=== PATIENT | female | born 1930 | race Caucasian/White ===

== ENCOUNTER 2017-06-27 14:19 | Inpatient (IN) | payer OTHER ==
--- NOTE | 2017-06-27 14:44 | CPEKG ---
Heart Rate: 126 RR Interval: 476 QRSD Interval: 76 QT Interval: 324 QTC Interval: 470 QRS [place]: 18 T Wave [place]: 38 EKG Severity - ABNORMAL ECG - EKG Impression: ATRIAL FLUTTER WITH 2:1 AV BLOCK Electronically Signed By: Mignon Brown 27-Jun-2017 23:05:49
--- NOTE | 2017-06-27 15:05 | EDPHY ---
H & P Time Seen by Provider: 06/27/17 14:39 HPI/ROS: CHIEF COMPLAINT: Irregular heartbeat HISTORY OF PRESENT ILLNESS: 86 year old female with history of paroxysmal atrial fibrillation presenting with fast, irregular heartbeat. This morning, she awoke with an irregular pulse and felt unwell, which she describes as having "bridges fuzzies" in her vision and diaphoresis. She laid down and took an extra metoprolol, but her symptoms have persisted. She is currently experiencing a rapid irregular heart beat, associated with rapid breathing. No allev/aggrev factors. No recent change in medications. On Metoprolol, Sotalol and Eliquis. She denies chest pressure or any pain or swelling in her legs. REVIEW OF SYSTEMS: A 10 point review of systems was performed and is negative with the exception of the elements mentioned in the history of present illness. Past Medical/Surgical History: Paroxysmal Afib COPD Social History: Nonsmoker. No alcohol use. Family at bedside. Visiting from [place]. 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 Smoking Status: Former smoker Physical Exam: General Appearance: Alert, pleasant Eyes: Pupils equal and round, no conjunctival pallor or injection ENT, Mouth: Mucous membranes moist Neck: Normal inspection Respiratory: Lungs are clear to auscultation Cardiovascular: Irregularly irregular tachycardia Gastrointestinal: Abdomen is soft and non-tender Neurological: A&O, nonfocal exam Skin: Warm and dry, no rash Extremities: Nontender, no pedal edema Psychiatric: Mood and affect normal Constitutional: Initial Vital Signs Temperature (C) 36.4 C 06/27/17 14:22 Heart Rate 114 H 06/27/17 14:22 Respiratory Rate 18 06/27/17 14:22 Blood Pressure 148/126 H 06/27/17 14:22 O2 Sat (%) 95 06/27/17 14:22 O2 Delivery Mode Room Air Allergies/Adverse Reactions: No Known Allergies Allergy (Unverified 06/27/17 14:21) Home Medications: Medication Instructions Recorded Apixaban [Eliquis] 5 mg PO BID 06/27/17 Herbals/Supplements -Info Only 1 ea PO DAILY 06/27/17 Multivitamins [Multivitamin (*)] 1 each PO DAILY 06/27/17 Rosuvastatin Calcium [Crestor 5mg] 5 mg PO HS 06/27/17 Sotalol HCl [Betapace 80 MG (*)] 80 mg PO BID 06/27/17 Diltiazem [Cardizem Ir Q6hr] 30 mg PO Q6H PRN #30 tab 06/28/17 Medical Decision Making - Diagnostics EKG Interpretation: EKG interpreted by me reveals Afib/flutter, vent rate 126. Impression: abnormal EKG Imaging: I viewed and interpreted images myself ED Course/Re-evaluation: 86 year old female presents in Afib with RVR. Tolerating the rapid HR well, with a normal BP. Plan to administer 10mg IV Diltiazem for rate control. Plan for chest x-ray, labs including CBC, BMP, Troponin. Labs unremarkable. Chest x-ray negative for acute processes. HR now 100's, Continues to be in Afib, BP stable. Diliazem drip ordered. 15:24 Consulted with hospitalist service. Dr. Lal accepts admission for atrial fibrillation with rapid ventricular rate. The pt remained stable throughout her ED stay. Consideration for cardioversion in am if remains in Afib. Critical care time of 35 minutes by me exclusive of unbundled procedures. Organ at risk: heart. Differential Diagnosis: includes though not limited to PE, pulm edema, ACS, hypotension, ventricular dysrhythmia. - Data Points Laboratory Results: Laboratory Results 06/27/17 15:02 06/27/17 15:02 Medications Given: Discontinued Medications Apixaban (Eliquis) 5 mg PO BID [facility] Stop: 12/24/17 20:59 Last Admin: 06/28/17 07:35 Dose: 5 mg Diltiazem HCl (Cardizem 25 Mg/5 Ml Vial) 10 mg IVP EDNOW ONE Stop: 06/27/17 15:13 Last Admin: 06/27/17 15:37 Dose: 10 mg Sodium Chloride (Ns) 500 mls @ 1,500 mls/hr IV ONCE ONE Stop: 06/27/17 15:48 Last Admin: 06/27/17 15:56 Dose: 500 mls Diltiazem HCl 125 mg/ Dextrose 125 mls @ 0 mls/hr IV EDNOW ONE; As Directed PRN Reason: Protocol Stop: 06/27/17 15:59 Last Admin: 06/27/17 16:19 Dose: Not Given Multivitamins (Tab-A-Makenzie) 1 each PO DAILY [facility] Stop: 12/25/17 08:59 Last Admin: 06/28/17 07:35 Dose: 1 each Rosuvastatin Calcium (Crestor) 5 mg PO HS [facility] Stop: 12/24/17 20:59 Last Admin: 06/27/17 20:34 Dose: 5 mg Sotalol HCl (Betapace) 80 mg PO BID [facility] Stop: 12/24/17 20:59 Last Admin: 06/28/17 07:36 Dose: 80 mg Departure - Departure Disposition: [facility] Inpatient Acute Clinical Impression: Atrial fibrillation with RVR Condition: Fair Report Scribed for: Zuly Greco Report Scribed by: Pratima Boykin Date of Report: 06/27/17 Time of Report: 15:10 Physician Review and Approval Statement: 06/27/17 15:10 Portions of this note were transcribed by a medical transcription radiology. I personally performed a history, physical exam, medical decision making, and confirmed accuracy of information the transcribed note.
[2017-06-27 15:12] LABS: % IMMATURE GRANULYOCYTES 0.3 % (0.0-1.1); ABSOLUTE IMMATURE GRANULOCYTES 0.02 10^3/uL (0.00-0.10); ADD DIFF? NO; ADD MORPH? NO; ADD SCAN? NO; ATYPICAL LYMPHOCYTE FLAG 0 (0-99); FRAGMENT RBC FLAG 0 (0-99); HEMATOCRIT 43.3 % (38.0-47.0); HEMOGLOBIN 14.7 g/dL (12.6-16.3); LEFT SHIFT FLG 0 (0-99); LIPEMIA HEMOLYSIS FLAG 90 (0-99); MEAN CELL HEMOGLOBIN 31.6 pg (27.9-34.1); MEAN CELL HEMOGLOBIN CONCENTR. 33.9 g/dL (32.4-36.7); MEAN CELL VOLUME 93.1 fL (81.5-99.8); MEAN PLATELET VOLUME 11.4 fL (8.7-11.7); PLATELET CLUMPS FLAG 20 (0-99); PLATELET COUNT 153 10^3/uL (150-400); RED BLOOD CELL COUNT 4.65 10^6/uL (4.18-5.33); RED CELL DISTRIBUTION WIDTH 12.9 % (11.5-15.2)
[2017-06-27] MEDS ORDERED: DILTIAZEM 25 MG/5 ML VIAL IVP ONE (15:12)
[2017-06-27] MEDS ORDERED: NS 500 ML IV ONE (15:29)
[2017-06-27] MEDS ORDERED: ACETAMINOPHEN 325 MG TAB PO PRN (15:29)
[2017-06-27 15:30] LABS: ANION GAP 11 mEq/L (8-16); CALCIUM 9.5 mg/dL (8.5-10.4); CARBON DIOXIDE 23 mEq/l (22-31); CHLORIDE 108 mEq/L (97-110); CREATININE 0.9 mg/dL (0.6-1.0); GLOMERULAR FILTRATION RATE 60; GLUCOSE 113 mg/dL (70-100); SODIUM 142 mEq/L (134-144)
[2017-06-27 15:41] LABS: TROPONIN I < 0.012 ng/mL (0.000-0.034)
[2017-06-27] MEDS ORDERED: DILTIAZEM 125 MG in D5W 125 ML IV ONE (15:58)
--- NOTE | 2017-06-27 18:38 | GHP ---
[f rep st] HISTORY AND PHYSICAL DATE OF ADMISSION: 06/27/2017 CHIEF COMPLAINT: Diaphoresis. HISTORY OF PRESENT ILLNESS: An 86-year-old female with a history of atrial fibrillation and mild CO PD, who presents with complaints of lightheadedness and diaphoresis the morning of presentation. Th e patient is visiting from [place], arrived approximately 5 days ago and has been feeling well sinc e her arrival. This morning she william, felt weak, and had a sweaty, clammy sensation. When she chec ked her pulse, she noted that it was irregular and quite rapid, therefore, presented to the emergenc y department. In the ED, she denies chest pain. Denies acute shortness of breath. Denies palpitat ions. Denies nausea or vomiting. Denies recent changes in her bowel habits. Denies dysuria, hemat uria. Does note occasional lower extremity edema at the end of the day, particularly when her eatin g habits are not so compliant. PAST MEDICAL HISTORY: 1. Atrial fibrillation, has not required cardioversion in the past. 2. Mild COPD. 3. Hyperlipidemia. 4. Borderline diabetes. SOCIAL HISTORY: Negative for tobacco. She smoked for 20 years but quit 50 years ago. Denies alcoh ol, illicit drugs or marijuana. FAMILY HISTORY: Significant for a father who of an intracerebral hemorrhage, she believes. He r mother lived to . ADVANCED DIRECTIVES: Patient is full cor, full tube. Her son would be her medical decisionmaker. REVIEW OF SYSTEMS: A 10-point review of systems is negative with the exception of that reported in the HPI. PHYSICAL EXAMINATION: VITAL SIGNS: Blood pressure 154/88, heart rate 120, respiratory rate 18, 95% on room air, 36.4. GENERAL: She is a pleasant, obese female, in no acute distress. HEENT: Notab le for moist mucous membranes. Eye exam is negative for any icterus. CARDIAC: Patient is rapid an d irregularly irregular. PULMONARY: She is clear to auscultation bilaterally. GASTROINTESTINAL: Positive bowel sounds. ABDOMEN: Soft and nontender. MUSCULOSKELETAL: Notable for symmetric trace lower extremity edema. SKIN: Exam is negative for any rashes. NEUROLOGIC: She is alert and orie nted x3. PSYCHIATRIC: She is pleasant and cooperative on interview and examination. LABORATORY DATA: White count is 6.6, hematocrit 43.3. Creatinine 0.9. Troponin less than 0.012. Chest x-ray, which I personally reviewed and interpreted, shows no acute infiltrates or edema. EKG, which I personally reviewed and interpreted, shows A flutter with 2:1 block. Heart rate in the 70s. ASSESSMENT AND PLAN: 1. This is an 86-year-old female presenting with diaphoresis. 2. Atrial fibrillation with rapid ventricular response. Patient's heart rates are in the 120s duri ng my evaluation. Clearly atrial fibrillation on telemetry. Patient received a 10 mg push of IV di ltiazem. Will start a diltiazem drip at this time. Continue her underlying Eliquis anticoagulation and her home dosing of sotalol. Will order a transthoracic echocardiogram, as well as thyroid func tion evaluation. The patient describes having had a recent cardiac catheterization for routine scre ening, which was negative for any coronary artery disease. I do not think we will need to risk stra tify during this hospital stay. 3. Borderline diabetes. Will follow patient's labs in the morning. Will not initiate sliding scal e insulin. Allow her to eat and drink normally. 4. Mild chronic obstructive pulmonary disease. Patient is saturating well on room air at presentat ion. Will not initiate any new medications. Simply follow her progress overnight. 5. Hyperlipidemia. We will continue her statin therapy without change. 6. Prophylaxis with Eliquis. 7. Diet: Cardiac. DISPOSITION: I expect in greater than 2 midnights, as the patient is presenting with atrial fibrill ation with rapid ventricular response requiring IV cardiac medications and close monitoring. I have discussed the case with the emergency room physician. The patient will be triaged to the PCU for care. /[id number]/MODL
[2017-06-27] MEDS: SOTALOL HCL 80 MG TAB PO SCH (20:33)
[2017-06-27] MEDS: APIXABAN 5 MG TAB PO SCH (20:34)
[2017-06-27] MEDS ORDERED: ROSUVASTATIN CALCIUM 10 MG TAB PO SCH (21:00)
[2017-06-27] MEDS ORDERED: NON-FORMULARY NEW DRUG (Rosuvastatin Calcium [Crestor 5mg] 5 MG) PO SCH (21:00)
[2017-06-27] MEDS ORDERED: DILTIAZEM 125 MG in D5W 125 ML IV SCH (23:15)
[2017-06-28 05:02] LABS: % IMMATURE GRANULYOCYTES 0.3 % (0.0-1.1); ABSOLUTE IMMATURE GRANULOCYTES 0.02 10^3/uL (0.00-0.10); ADD DIFF? NO; ADD MORPH? NO; ADD SCAN? NO; ATYPICAL LYMPHOCYTE FLAG 10 (0-99); FRAGMENT RBC FLAG 0 (0-99); HEMATOCRIT 41.6 % (38.0-47.0); HEMOGLOBIN 13.7 g/dL (12.6-16.3); LEFT SHIFT FLG 0 (0-99); LIPEMIA HEMOLYSIS FLAG 80 (0-99); MEAN CELL HEMOGLOBIN 31.4 pg (27.9-34.1); MEAN CELL HEMOGLOBIN CONCENTR. 32.9 g/dL (32.4-36.7); MEAN CELL VOLUME 95.2 fL (81.5-99.8); MEAN PLATELET VOLUME 11.5 fL (8.7-11.7); PLATELET CLUMPS FLAG 10 (0-99); PLATELET COUNT 133 10^3/uL (150-400); RED BLOOD CELL COUNT 4.37 10^6/uL (4.18-5.33); RED CELL DISTRIBUTION WIDTH 12.9 % (11.5-15.2)
[2017-06-28 06:10] LABS: ANION GAP 9 mEq/L (8-16); CALCIUM 9.4 mg/dL (8.5-10.4); CARBON DIOXIDE 26 mEq/l (22-31); CHLORIDE 106 mEq/L (97-110); CREATININE 0.9 mg/dL (0.6-1.0); GLOMERULAR FILTRATION RATE 60; GLUCOSE 93 mg/dL (70-100); SODIUM 141 mEq/L (134-144)
[2017-06-28] MEDS: APIXABAN 5 MG TAB PO SCH (07:35)
[2017-06-28] MEDS: SOTALOL HCL 80 MG TAB PO SCH (07:36)
[2017-06-28] MEDS ORDERED: Herbals/Supplements -Info Only PO SCH (09:00)
[2017-06-28] MEDS ORDERED: MULTIVITAMINS 1 EACH TAB PO SCH (09:00)
[2017-06-28 11:34] VITALS: TEMP 97.5
--- NOTE | 2017-06-28 15:16 | CPEKG ---
Heart Rate: 72 RR Interval: 833 P-R Interval: 180 QRSD Interval: 84 QT Interval: 416 QTC Interval: 456 P [place]: 54 QRS [place]: 24 T Wave [place]: 25 EKG Severity - NORMAL ECG - EKG Impression: SINUS RHYTHM EKG Impression: SINUS RHYTHM HAS REPLACED ATRIAL FLUTTER Electronically Signed By: Amaury Rubin 28-Jun-2017 22:06:18
[2017-06-28 15:25] VITALS: BP 128/64; PULSE 73; RESP 18; O2SAT 94
--- NOTE | 2017-06-28 19:32 | GDS ---
[f rep st] DISCHARGE SUMMARY DISCHARGE DIAGNOSES: 1. Rapid atrial fibrillation, resolved. 2. Mild chronic obstructive pulmonary disease. 3. Hyperlipidemia. CONSULTANTS: None. HISTORY: For details, please see the History and Physical dated June 27, 2017. In brief, the patient is an 86-year-old female, with history of atrial fibrillation and mild COPD, w ho presents to the emergency department with lightheadedness and diaphoresis, and was found to be in rapid atrial fibrillation. She was admitted to the hospital for management. HOSPITAL COURSE: Patient was admitted to the cardiac telemetry unit. She received 10 mg of IV dilt iazem and started on a diltiazem drip. She was continued on her Eliquis for anticoagulation, as wel l as her home sotalol dose. She reported having a recent cardiac catheterization, which was negativ e for coronary artery disease, therefore, further risk stratification was not performed. After a br ief time on the diltiazem drip, she converted to normal sinus rhythm. Her symptoms completely resol leobardo and she wished to discharge home the following morning. Repeat EKG does confirm a normal sinus rhythm with a QTc of 442. Since she responded well to diltiazem here, she was given a prescription for oral diltiazem 30 mg p.o. q.6 hours p.r.n., should she have a recurrent episode of rapid atrial fibrillation. I recommend she follow up with her embossing clerk when she returns home to discuss poss ible increase in her sotalol dose. DISPOSITION: Due to an unanticipated rapid recovery, patient is discharged home the day after admis gilbert, in stable condition. DISCHARGE MEDICATIONS: Please see [facility] for complete updated outpatient medication list. She wi ll continue all outpatient medications as previously prescribed. New medications on discharge include diltiazem 30 mg p.o. q.6 hours p.r.n., #30, no refills. FOLLOWUP: Dr. Ron Hickman, primary care, and she is also advised to follow up with her cardiolo gist upon returning home to [facility]. /[id number]/MODL
== END 2017-06-28 16:35 | disposition home or self-care (01) | DRG 310 ==
LOC: OBSVTOIN 15:25 → F2W 16:50
PROVIDERS: ADMIT Hospitalist; ATTEND Hospitalist
PROC: 3E033RZ Introduction of Antiarrhythmic into Peripheral Vein, Percutaneous Approach (ICD-10-PCS; principal; 2017-06-27)
DX: I48.0 Paroxysmal atrial fibrillation (principal); J44.9 Chronic obstructive pulmonary disease, unspecified; Z87.891 Personal history of nicotine dependence; E78.5 Hyperlipidemia, unspecified; R73.03 Prediabetes
CPT/HCPCS: 97161-GP; 97165-GO; 97530-GP; G8978-GP-CH; G8979-GP-CH; G8980-GP-CH; G8987-GO-CI; G8988-GO-CH; G8989-GO-CH